=== PATIENT | female | born 1960 | race Caucasian/White ===

== ENCOUNTER 2016-07-26 09:12 | Emergency (ER) | payer OTHER ==
[~2016-07-26 09:12] MED LIST: ALBUTEROL0.09 MG/A1 INH; ALEVE220 MG PO; AZITHROMYCIN500 MG PO; CLARITHROMYCIN500 MG PO; LOSARTAN POTASS50 MG PO; MUCINEX600 MG PO; NAPROXEN500 MG PO; PREDNISONE10 MG PO; TUSSIN100 MG/5 M PO
--- NOTE | 2016-07-26 09:23 | ED GI/GU/ABDOMINAL COMPLAINT ---
History of Present Illness General Chief Complaint: Abdominal Pain/Flank Pain Stated Complaint: LOWER ABD PAIN X 4 DAYS, WORSE TODAY Source: patient Exam Limitations: no limitations Vital Signs & Intake/Output Vital Signs & Intake/Output Vital Signs Date Time Temp Pulse Resp B/P B/P Pulse O2 O2 Flow FiO2 Mean Ox Delivery Rate 07/26 1132 98.6 82 15 184/102 96 Room Air Room Air 07/26 0918 97.3 97 18 152/93 99 Room Air Allergies Coded Allergies: codeine (VOMITING 07/26/16) Reconcile Medications Albuterol Sulfate (Albuterol Sulfate Hfa) 0.09 MG/Actuation GABRIELA 2 PUFF INH Q4- 6 PRN PRN SHORTNESS OF BREATH 90 MCG PER PUFF Azithromycin 500 MG TAB 1 TAB PO DAILY BRONCHITIS Guaifenesin (Tussin) 100 MG/5 ML SYR 30 ML PO PRN MUCUS (Reported) Guaifenesin (Mucinex) (Unknown Strength) TER 1 TAB PO Q4-6H PRN COUGH ( Reported) Lisinopril 10 MG TABLET 1 TAB PO DAILY HYPERTENSION Losartan Potassium 50 MG TAB 1 TAB PO DAILY HTN Naproxen Sodium (Aleve) 220 MG TAB 1 TAB PO PRN PAIN (Reported) Prednisone 10 MG TAB 1 TAB PO SI BRONCHITIS TAKE 4 TAB FOR 2 DAYS TAKE 3 TAB FOR 2 DAYS TAKE 2 TAB FOR 2 DAYS TAKE 1 TAB FOR 2 DAYS THEN STOP Triage Note: PT TO TRIAGE C/O LOWER ABD PAIN X4 DAYS. STATES IT STARTED OFF LAST WEEK WITH AN INCREASED FREQUENCY TO URGE BUT THEN FELT LIKE IT GOT BETTER. REPORTS THAT SHE HAD AN EPISODE OF VOMITING THIS MORNING, BUT HAS NOT HAD ANY OTHER N/V OTHER THAN THIS MORNING. DENIES ANY URINARY S/S CURRENTLY. Triage Nurses Notes Reviewed? yes ? N Is pt currently ? No Duration: constant Timing: recent history Quality/Severity: fullness, moderate Severity Numbers: 5 Location: suprapubic Radiation: back Activities at Onset: none HPI: Patient is a 55-year-old female who presents emergency room with a gradual onset of suprapubic abdominal fullness increased frequency or urination and left-sided back pain. Patient also today had a persisting coughing episode where she started to dry heave and had minimal amounts of nonbloody nonbilious emesis however since then patient has been able tolerate by mouth and denies any current nausea or vomiting. Patient has not taken any medications for symptoms. Patient had bowel movement this morning no blood no melena noted. Denies any fever chills cough shortness of breath, vaginal bleeding or discharge or hematuria. Patient is able tolerate by mouth (HALI CARRANZA) Past History Travel History Traveled to [place] past 21 day No Medical History Any Pertinent Medical History? see below for history Neurological: vertigo EENT: NONE Cardiovascular: NONE Respiratory: bronchitis Gastrointestinal: NONE Hepatic: NONE Renal: NONE Musculoskeletal: NONE Psychiatric: NONE Endocrine: NONE Blood Disorders: NONE Cancer(s): NONE PIPELAYING FITTER/Reproductive: NONE History of MRSA: No History of VRE: No History of CDIFF: No Surgical History Surgical History: Psychosocial History Who do you live with Patient/Self Services at Home None What is your primary language Vietnamese Tobacco Use: Never used Family History Family History, If Any: MOTHER (Cancer history.). FATHER (DM TYPE 2). . Hx Contributory? No (HALI CARRANZA) Review of Systems Review of Systems Constitutional: Reports: no symptoms. EENTM: Reports: no symptoms. Respiratory: Reports: no symptoms. Cardiovascular: Reports: no symptoms. GI: Reports: see HPI, abdominal pain. Genitourinary: Reports: no symptoms. Musculoskeletal: Reports: see HPI, back pain. Skin: Reports: no symptoms. Neurological/Psychological: Reports: no symptoms. Hematologic/Endocrine: Reports: no symptoms. Immunologic/Allergic: Reports: no symptoms. All Other Systems: Reviewed and Negative (HALI CARRANZA) Physical Exam Physical Exam General Appearance: no apparent distress, obese Gastrointestinal: normal bowel sounds, soft, SUPRAPUBIC POINT TENDERNESS NO RIGHT LOWER QUADRANT PAIN NO REBOUND TENDERNESS NO PERITONEAL SIGNS Comments: HEENT: Normal EENT exam, Neck: Supple, no lymphadenopathy, normal range of motion without pain or tenderness Back: Nontender, no CVA tenderness. Cardiovascular: Regular rate and rhythms no murmurs rubs or gallops, normal JVP Respiratory: Chest nontender. No respiratory distress.breath sounds clear to auscultation bilaterally Extremity: No edema, no calf tenderness to palpation, normal and equal pulses. Neuro: Alert oriented x3, motor sensory normal, Skin: No appreciable rash on exposed skin, skin is warm and dry. Psych: Mood and affect is normal, memory and judgment is normal. Core Measures ACS in differential dx? No Severe Sepsis Present: No Septic Shock Present: No (CHANO ALLISON,HALI) Progress Differential Diagnosis: AAA, AMI, appendicitis, biliary colic, bowel obstruction , colon cancer, cholecystitis, diverticulitis, endometritis, esophageal varices, gastritis, hepatitis, hernia, hemorrhoids, ischemic bowel, inflamm bowel dis, kidney stone, Isidra-Abigail tear, ovarian cyst, ovarian torsion, pancreatitis, PID/cervicitis, peptic ulcer, PUD/GERD, perforated viscous, SBO, UTI/pyelo Plan of Care: Orders Procedure Date/time Status LIPASE 07/26 1023 Complete COMPREHENSIVE METABOLIC PANEL 07/26 1023 Complete CBC WITHOUT DIFFERENTIAL 07/26 1023 Complete AMYLASE 07/26 102 Complete Add-on Test (ER Only) 07/26 09 Active CULTURE,URINE 07/27 935 Active URINALYSIS 07/26 918 Complete Laboratory Tests 07/26/16 1032: Anion Gap 10, Estimated GFR > 60, BUN/Creatinine Ratio 25.7 H, Glucose 102 H, Calcium 8.9, Total Bilirubin 0.4, AST 28, ALT 40, Alkaline Phosphatase 128 H, Total Protein 6.6, Albumin 3.7, Globulin 2.9, Albumin/Globulin Ratio 1.3, Amylase 35, Lipase 90, CBC w Diff NO MAN DIFF REQ, RBC 4.29, MCV 84.1, MCH 27.9, RDW 13.9, MPV 9.4, Gran % 78.3 H, Lymphocytes % 12.8 L, Monocytes % 6.3, Eosinophils % 2.3, Basophils % 0.3, Absolute Granulocytes 6.1, Absolute Lymphocytes 1.0 L, Absolute Monocytes 0.5, Absolute Eosinophils 0.2, Absolute Basophils 0, PUBS MCHC 33.2 07/26/16 0936: Urinalysis LIGHT H, Urine Color YEL, Urine Clarity HAZY H, Urine pH 6.0, Ur Specific [place] >= 1.030, Urine Protein TRACE H, Urine Ketones NEG, Urine Nitrite NEG, Urine Bilirubin NEG@ICTO, Urine Urobilinogen 0.2, Ur Leukocyte Esterase NEG, Ur Microscopic SEDIMENT EXAMINED, Urine RBC 1-3, Urine WBC 1-3 H, Ur Epithelial Cells MANY H, Urine Bacteria FEW H, Hyaline Casts RARE H, Granular Casts RARE H, Urine Mucus PACKD H, Urine Hemoglobin NEG, Urine Glucose NEG Microbiology 07/27 935 URINE ROUT: Urine Culture - RECD Patient currently is resting comfortably at bedside no apparent distress no right lower quadrant point tenderness on exam patient is afebrile After urine analysis was unremarkable blood work and CT scan was resulted showing no emergent acute findings. Patient again was offered medications for symptoms and declines. Patient was strongly advised to follow-up with machine shop supervisor, prior to discharge patient did have elevated blood pressure where she was administered lisinopril and given a prescription and was strongly advised to follow up with primary care doctor next week for repeat blood pressure and further evaluation treatment. Upon discharge patient looks well no apparent distress and will comply with discharge instructions and had no questions (CHANO ALLISON,HALI) Diagnostic Imaging: Viewed by Me: CT Scan. Radiology Impression: no acute abnormality Initial ED EKG: none Comments: PATIENT: RUPALI BEDOLLA PRESENT AGE: 55 PATIENT ACCOUNT NO: [id number] : 56 LOCATION: [facility] ORDERING PHYSICIAN: HALI ALLISON SERVICE DATE: 07/26/16 EXAM TYPE: CAT - CT ABD & PELVIS W/O IV CONTRAS EXAMINATION: CT ABDOMEN AND PELVIS WITHOUT CONTRAST CLINICAL INFORMATION: Suprapubic pain. COMPARISON: None. TECHNIQUE: Multidetector volumetric imaging was performed from the superior aspect of the liver through the pubic symphysis. Sagittal and coronal reformatted images were obtained on the technologist's workstation. DLP: 623.37 mGy-cm FINDINGS: LUNG BASES: The visualized lung bases are unremarkable. LIVER, GALLBLADDER, AND BILIARY TREE: The liver is normal in size, shape, and attenuation. No focal hepatic lesion or biliary ductal dilatation is present. The gallbladder is unremarkable with no evidence of radiopaque gallstones, gallbladder wall thickening, or obvious pericholecystic inflammatory changes. PANCREAS: Unremarkable. SPLEEN: Small splenic granulomas are noted. Small accessory spleen noted. Otherwise, unremarkable. ADRENAL GLANDS: Unremarkable. KIDNEYS AND URETERS: The kidneys are normal in size, shape, and attenuation. No hydronephrosis, hydroureter, or calculi seen. There are mild bilateral extrarenal pelves incidentally noted. No perinephric stranding. BLADDER: Unremarkable. GASTROINTESTINAL TRACT: There is moderately severe diverticulosis, most pronounced in the sigmoid. No acute diverticulitis is seen. There is no bowel obstruction, free intraperitoneal air or abscess. The vermiform appendix appears normal. ABDOMINAL WALL: There is a diastases rectus. There is a small fat-containing umbilical hernia. LYMPH NODES: There is no sizable, bulky abdominopelvic lymphadenopathy. VASCULAR: There is mild aortoiliac atherosclerotic change. No abdominal aortic aneurysm is seen. PELVIC VISCERA: The uterus and adnexa are unremarkable. OSSEOUS STRUCTURES: There is multi-level thoracolumbar spondylosis, with an appearance suggesting possible DISH (diffuse idiopathic skeletal hyperostosis). No acute or aggressive osseous abnormality is seen. IMPRESSION: 1. There is moderately severe diverticulosis, without acute diverticulitis. No bowel obstruction, free peritoneal air or abscess is seen. The vermiform appendix is normal. 2. No urinary calculus or hydronephroureter is seen bilaterally. 3. Skeletal findings suggest possible DISH. DICTATED BY: LYNETTE CARRINGTON,BONNIE Tee (HALI CARRANZA) Departure Departure Disposition: HOME OR SELF CARE Condition: Stable Clinical Impression Primary Impression: Abdominal pain Secondary Impressions: High blood pressure Referrals: SOURAV CARRINGTON,FRANCESCA AGUIRRE MD,JIMMY Leon (PCP/Family) Additional Instructions: As discussed begin [id number] Tylenol and/or ibuprofen if needed for pain and inflammation. If symptoms worsen return to emergency room. If no better in 5 days follow-up and establish machine shop supervisor Dr. BENJAMIN for further evaluation treatment. If symptoms worsen return to emergency room Follow-up this week with your primary care doctor for recheck of blood pressure and further evaluation. Begin the prescription of lisinopril as directed for your high blood pressure. Prescriptions waiting at [facility] pharmacy Departure Forms: Customer Survey General Discharge Information Prescriptions: Current Visit Scripts Lisinopril 1 TAB PO DAILY #15 TAB (HALI CARRANZA) PA/PHARMACIST AIDE Co-Sign Statement Statement: ED Attending supervision documentation- [] I saw and evaluated the patient. I have also reviewed all the pertinent lab results and diagnostic results. I agree with the findings and the plan of care as documented in the PA's/PHARMACIST AIDE's documentation. [X] I have reviewed the ED Record and agree with the PA's/PHARMACIST AIDE's documentation. [] Additions or exceptions (if any) to the PAs/PHARMACIST AIDE's note and plan are summarized below: [] (YOVANNY CARRINGTON,KURT David
[2016-07-26 10:49] LABS: ABSOLUTE BASOPHIL COUNT 0 /CUMM (0.0-0.2); ABSOLUTE EOSINOPHIL COUNT 0.2 /CUMM (0.0-0.7); ABSOLUTE GRANULOCYTE CT 6.1 /CUMM (1.4-6.5); ABSOLUTE MONOCYTE COUNT 0.5 /CUMM (0.10-0.60); BASOPHIL % 0.3 % (0.0-2.0); EOSINOPHIL % 2.3 % (0-5); GRANULOCYTE % 78.3 % (42.2-75.2); HEMATOCRIT 36.1 % (37-47); MEAN CORPUSCULAR HGB 27.9 PG (27.0-31.0); MEAN CORPUSCULAR HGB CONC 33.2 G/DL (33.0-37.0); MEAN CORPUSCULAR VOLUME 84.1 FL (81.0-99.0); MEAN PLATELET VOLUME 9.4 FL (7.4-10.4); PLATELET COUNT 208 /CUMM (130-400); RBC DISTRIBUTION WIDTH 13.9 % (11.5-14.5); RED BLOOD CELL CT 4.29 /CUMM (4.20-5.40); WHITE BLOOD CELL COUNT 7.8 /CUMM (4.8-10.8)
--- NOTE | 2016-07-26 11:12 | CT SCAN REPORT ---
EXAMINATION: CT ABDOMEN AND PELVIS WITHOUT CONTRAST CLINICAL INFORMATION: Suprapubic pain. COMPARISON: None. TECHNIQUE: Multidetector volumetric imaging was performed from the superior aspect of the liver through the pubic symphysis. Sagittal and coronal reformatted images were obtained on the technologist's workstation. DLP: 623.37 mGy-cm FINDINGS: LUNG BASES: The visualized lung bases are unremarkable. LIVER, GALLBLADDER, AND BILIARY TREE: The liver is normal in size, shape, and attenuation. No focal hepatic lesion or biliary ductal dilatation is present. The gallbladder is unremarkable with no evidence of radiopaque gallstones, gallbladder wall thickening, or obvious pericholecystic inflammatory changes. PANCREAS: Unremarkable. SPLEEN: Small splenic granulomas are noted. Small accessory spleen noted. Otherwise, unremarkable. ADRENAL GLANDS: Unremarkable. KIDNEYS AND URETERS: The kidneys are normal in size, shape, and attenuation. No hydronephrosis, hydroureter, or calculi seen. There are mild bilateral extrarenal pelves incidentally noted. No perinephric stranding. BLADDER: Unremarkable. GASTROINTESTINAL TRACT: There is moderately severe diverticulosis, most pronounced in the sigmoid. No acute diverticulitis is seen. There is no bowel obstruction, free intraperitoneal air or abscess. The vermiform appendix appears normal. ABDOMINAL WALL: There is a diastases rectus. There is a small fat-containing umbilical hernia. LYMPH NODES: There is no sizable, bulky abdominopelvic lymphadenopathy. VASCULAR: There is mild aortoiliac atherosclerotic change. No abdominal aortic aneurysm is seen. PELVIC VISCERA: The uterus and adnexa are unremarkable. OSSEOUS STRUCTURES: There is multi-level thoracolumbar spondylosis, with an appearance suggesting possible DISH (diffuse idiopathic skeletal hyperostosis). No acute or aggressive osseous abnormality is seen. IMPRESSION: 1. There is moderately severe diverticulosis, without acute diverticulitis. No bowel obstruction, free peritoneal air or abscess is seen. The vermiform appendix is normal. 2. No urinary calculus or hydronephroureter is seen bilaterally. 3. Skeletal findings suggest possible DISH.
[2016-07-26 11:32] VITALS: BP 184/102
[2016-07-26] MEDS ORDERED: LISINOPRIL10 M1 PO (11:35)
== END 2016-07-26 11:41 ==
LOC: ERH 09:12
PROVIDERS: Physician Assistant
DX: R10.31 Right lower quadrant pain (principal); R03.0 Elevated blood-pressure reading, without diagnosis of hypertension
CPT/HCPCS: 74176; 81001; 87086